=== PATIENT | male | born 1990 | race Caucasian/White ===

== ENCOUNTER 2020-05-14 13:13 | Emergency (ER) | payer OTHER, SELFPAY ==
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
[2020-05-14 13:19] VITALS: BP 135/88; PULSE 89; RESP 18; TEMP 36.6; O2SAT 98
[2020-05-14 15:19] VITALS: BP 124/105; PULSE 82; RESP 19; TEMP 36.8; O2SAT 99
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
== END 2020-05-14 15:20 | disposition home or self-care (01) ==
PROVIDERS: Emergency Provider Emergency Medicine
DX: S06.0X0A Concussion without loss of consciousness, initial encounter (principal); W22.8XXA Striking against or struck by other objects, initial encounter
CPT/HCPCS: 70450; 70486; 99284